=== PATIENT | female | born 1970 | race Hispanic/Latino ===

== ENCOUNTER 2023-01-03 23:05 | Emergency (ER) | payer BC ==
--- NOTE | 2023-01-04 00:49 | ER ---
Nurse's Notes [facility] Name: Maxime Willson Age: 52 yrs Sex: Female : 1970 Arrival Date: 01/03/2023 Time: 23:05 Bed 10 Private MD: Diagnosis: Cutaneous abscess of other sites-breast Presentation: 01/03 23:34 Chief complaint: Patient states: I have hydradenitis suppurativa and i have a lump on kd3 my left breast that has been there for a year and i have had to have it drained of puss before. Now it is inflamed and painful and close to my nipple. Coronavirus screen: Vaccine status: Patient reports receiving the 2nd dose of the covid vaccine. Ebola Screen: No symptoms or risks identified at this time. Initial Sepsis Screen: Does the patient meet any 2 criteria? No. Patient's initial sepsis screen is negative. Does the patient have a suspected source of infection? No. Patient's initial sepsis screen is negative. Risk Assessment: Do you want to hurt yourself or someone else? Patient reports no desire to harm self or others. Onset of symptoms was January 03, 2023. 23:34 Method Of Arrival: Ambulatory kd3 23:34 Acuity: RAINE 4 kd3 Triage Assessment: 23:37 General: Appears uncomfortable, Behavior is cooperative, crying. Pain: Complains of kd3 pain in left breast. 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 - Social history:: Smoking status: Patient reports the use of cigarette tobacco products. Screenin/03 01:14 [facility] ED Fall Risk Assessment (Adult) Score/Fall Risk Level 0 - 2 = Low Risk. Abuse as6 screen: Denies threats or abuse. Denies injuries from another. Nutritional screening: No deficits noted. Tuberculosis screening: No symptoms or risk factors identified. Vital Signs: 01/03 23:34 BP 143 / 84; Pulse 101; Resp 19; Temp 98.8(O); Pulse Ox 96% on R/A; Weight 104.33 kg; kd3 Height 5 ft. 4 in. ; 01/04 01:15 BP 137 / 69; Pulse 78; Resp 18 S; Pulse Ox 97% on R/A; as6 01/03 23:34 Body Mass Index 39.48 (104.33 kg, 162.56 cm) kd3 ED Course: 01/03 23:11 Patient arrived in ED. ja2 23:26 Tasneem Forbes [facility]C [facility] snw 23:26 Gerardo Marion MD is Attending Physician. snw 23:37 Triage completed. kd3 23:37 Arm band placed on right wrist. kd3 01/04 01:15 Bed in low position. Call light in reach. as6 01:15 No provider procedures requiring assistance completed. Patient did not have IV access as6 during this emergency room visit. Administered Medications: 01:04 Drug: morphine IM 4 mg Route: IM; Site: right deltoid; as6 01:15 Follow up: Response: No adverse reaction as6 01:07 Drug: Rocephin (cefTRIAXone) IM 1 grams Route: IM; Site: right ventrogluteal; as6 01:16 Follow up: Response: No adverse reaction as6 01:07 Drug: Mupirocin Topical Ointment 2 % 1 application Route: Topical; Site: affected area; as6 01:16 Follow up: Response: No adverse reaction as6 01:09 Drug: Ondansetron PO 4 mg Route: PO; as6 01:16 Follow up: Response: No adverse reaction as6 Medication: 01:14 VIS not applicable for this client. as6 Outcome: 00:49 Discharge ordered by . snw 01:15 Discharged to home ambulatory, with family. as6 01:15 Condition: stable 01:15 Discharge instructions given to patient, Instructed on discharge instructions, follow up and referral plans. medication usage, Demonstrated understanding of instructions, follow-up care, medications, Prescriptions given X 2. 01:16 Patient left the ED. as6 Signatures: Tasneem Forbes FNP-C FNP-Adrianne Roman ja2 Santos Zuleta RN RN as6 Risa Cruz RN RN kd3
--- NOTE | 2023-01-04 00:50 | EDPHYS ---
Physician Documentation [facility] Name: Maxime Willson Age: 52 yrs Sex: Female : 1970 Arrival Date: 01/03/2023 Time: 23:05 Bed 10 Private MD: ED Physician Gerardo Marion HPI: 01/04 00:27 This 52 yrs old Female presents to ER via Ambulatory with complaints of Breast snw Lump. 00:27 The patient presents with an abscess of the left breast. Onset: The symptoms/episode snw began/occurred 3 day(s) ago, and became worse and became persistent. Associated signs and symptoms: Pertinent positives: swelling. Severity of symptoms: At their worst the symptoms were moderate. The patient has experienced similar episodes in the past, multiple times. The patient has not recently seen a physician, and does not have an established primary care provider, just moved to [facility]. 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 - Social history:: Smoking status: Patient reports the use of cigarette tobacco products. ROS: 01/04 00:10 Constitutional: Negative for fever, chills, and weight loss, Eyes: Negative for injury, snw pain, redness, and discharge, ENT: Negative for injury, pain, and discharge, Neck: Negative for injury, pain, and swelling, Cardiovascular: Negative for chest pain, palpitations, and edema, Respiratory: Negative for shortness of breath, cough, wheezing, and pleuritic chest pain, Abdomen/GI: Negative for abdominal pain, nausea, vomiting, diarrhea, and constipation, Back: Negative for injury and pain, : Negative for injury, bleeding, discharge, and swelling, MS/Extremity: Negative for injury and deformity, Neuro: Negative for headache, weakness, numbness, tingling, and seizure, Psych: Negative for depression, anxiety, suicide ideation, homicidal ideation, and hallucinations. Skin: Positive for abscess, of the left breast. Exam: 00:08 Constitutional: This is a well developed, well nourished patient who is awake, alert, snw and in no acute distress. Head/Face: Normocephalic, atraumatic. Eyes: Pupils equal round and reactive to light, extra-ocular motions intact. Lids and lashes normal. Conjunctiva and sclera are non-icteric and not injected. Cornea within normal limits. Periorbital areas with no swelling, redness, or edema. ENT: Nares patent. No nasal discharge, no septal abnormalities noted. Tympanic membranes are normal and external auditory canals are clear. Oropharynx with no redness, swelling, or masses, exudates, or evidence of obstruction, uvula midline. Mucous membranes moist. Neck: Trachea midline, no thyromegaly or masses palpated, and no cervical lymphadenopathy. Supple, full range of motion without nuchal rigidity, or vertebral point tenderness. No Meningismus. Chest/axilla: Normal chest wall appearance and motion. Nontender with no deformity. No lesions are appreciated. Cardiovascular: Regular rate and rhythm with a normal S1 and S2. No gallops, murmurs, or rubs. Normal PMI, no JVD. No pulse deficits. Respiratory: Lungs have equal breath sounds bilaterally, clear to auscultation and percussion. No rales, rhonchi or wheezes noted. No increased work of breathing, no retractions or nasal flaring. Abdomen/GI: Soft, non-tender, with normal bowel sounds. No distension or tympany. No guarding or rebound. No evidence of tenderness throughout. Back: No spinal tenderness. No costovertebral tenderness. Full range of motion. MS/ Extremity: Pulses equal, no cyanosis. Neurovascular intact. Full, normal range of motion. Neuro: Awake and alert, GCS 15, oriented to person, place, time, and situation. Cranial nerves II-XII grossly intact. Motor strength 5/5 in all extremities. Sensory grossly intact. Cerebellar exam normal. Normal gait. Psych: Awake, alert, with orientation to person, place and time. Behavior, mood, and affect are within normal limits. 00:08 Skin: Appearance: normal except for affected area, abscess, that is moderate sized, of the left breast, with induration, multiple areas of scarring, currently area distal to left lateral nipple with induration, tenderness. Vital Signs: 01/03 23:34 BP 143 / 84; Pulse 101; Resp 19; Temp 98.8(O); Pulse Ox 96% on R/A; Weight 104.33 kg; kd3 Height 5 ft. 4 in. ; 01/04 01:15 BP 137 / 69; Pulse 78; Resp 18 S; Pulse Ox 97% on R/A; as6 01/03 23:34 Body Mass Index 39.48 (104.33 kg, 162.56 cm) kd3 MDM: 01/03 23:37 Patient medically screened. snw 01/04 00:28 Differential diagnosis: abscess, cellulitis, insect bite. Data reviewed: vital signs, snw nurses notes. I considered the following discharge prescriptions or medication management in the emergency department Medications were administered in the Emergency Department. See MAR. Counseling: I had a detailed discussion with the patient and/or guardian regarding: the historical points, exam findings, and any diagnostic results supporting the discharge/admit diagnosis, the need for outpatient follow up, for definitive care, to return to the emergency department if symptoms worsen or persist or if there are any questions or concerns that arise at home. Special discussion: I have referred the patient to see his PCP for further evaluation of high blood pressure. I discussed in detail with the patient the higher chance of wound infection based on his presenting history. Based on the history and exam findings, there is no indication for further emergent testing or inpatient evaluation. I discussed with the patient/guardian the need to see the general surgeon for further evaluation of the symptoms. I discussed with the patient/guardian the need to see the primary care provider for further evaluation of the symptoms. Administered Medications: 01:04 Drug: morphine IM 4 mg Route: IM; Site: right deltoid; as6 01:15 Follow up: Response: No adverse reaction as6 01:07 Drug: Rocephin (cefTRIAXone) IM 1 grams Route: IM; Site: right ventrogluteal; as6 01:16 Follow up: Response: No adverse reaction as6 01:07 Drug: Mupirocin Topical Ointment 2 % 1 application Route: Topical; Site: affected area; as6 01:16 Follow up: Response: No adverse reaction as6 01:09 Drug: Ondansetron PO 4 mg Route: PO; as6 01:16 Follow up: Response: No adverse reaction as6 Disposition: 13:13 Co-signature as Attending Physician, Gerardo Marion MD I agree with the assessment and kdr plan of care. Disposition Summary: 01/04/23 00:49 Discharge Ordered Location: Home snw Condition: Stable snw Diagnosis - Cutaneous abscess of other sites - breast snw Followup: snw - With: Emergency Department - When: As needed - Reason: Worsening of condition Followup: snw - With: Private Physician - When: 2 - 3 days - Reason: Recheck today's complaints, Continuance of care, Re-evaluation by your physician Discharge Instructions: - Discharge Summary Sheet snw - Skin Abscess snw Forms: - Medication Reconciliation Form snw - Thank You Letter snw - Antibiotic Education snw - Prescription Opioid Use snw - [email or web address] snw Prescriptions: - Dicloxacillin 500 mg Oral Capsule - take 1 capsule by ORAL route every 6 hours for 10 days; 40 capsule; Refills: 0, snw Product Selection Permitted - Tramadol 50 mg Oral Tablet - take 1 tablet by ORAL route every 8 hours as needed; 12 tablet; Refills: 0, snw Product Selection Permitted Signatures: Gerardo Marion MD MD [facility] Tasneem Forbes, STEFFANIE-C QUILLER OPERATOR-Csnw Santos Zuleta, RN RN as6 Risa Cruz RN RN kd3
[2023-01-04] MEDS ORDERED: MORPHINE 4 MG/ML SYR ONE (01:07)
[2023-01-04] MEDS ORDERED: ONDANSETRON 4 MG (ODT) TAB ONE (01:07)
[2023-01-04] MEDS ORDERED: MUPIROCIN 2% OINT 22GM TUBE TOP ONE (01:07)
[2023-01-04] MEDS ORDERED: LIDOCAINE 1% MPF 2 ML AMPULE ONE (01:07)
[2023-01-04] MEDS ORDERED: CEFTRIAXONE 1000 MG/VIAL ONE (01:07)
[2023-01-04 01:54] VITALS: TEMP 98.8
[2023-01-04 01:56] VITALS: BP 137/69; O2SAT 97
== END 2023-01-04 01:16 | disposition home or self-care (01) ==
LOC: ER 23:05
DX: N61.1 Abscess of the breast and nipple (principal); Z88.6 Allergy status to analgesic agent
CPT/HCPCS: 96372; 99284; Q0162; J0696